=== PATIENT | male | born 1960 | race Caucasian/White ===

== ENCOUNTER 2023-01-25 21:01 | Inpatient (IN) | payer OTHER ==
[~2023-01-25] VITALS: Ht 162.6 cm; Wt 63.0 kg
[2023-01-25 21:15] VITALS: BP 95/73; PULSE 60; RESP 16; TEMP 98.2; O2SAT 97
[2023-01-25 21:55] VITALS: O2SAT 98
[2023-01-25] MEDS ORDERED: MORPHINE SULFATE 4 MG/ML SYR IVP ONE (22:15)
[2023-01-25] MEDS ORDERED: ONDANSETRON 4 MG/2 ML VIAL IVP ONE (22:15)
[2023-01-25 22:51] LABS: HEMATOCRIT 27.8 % (36-52); HEMOGLOBIN 9.5 g/dL (12.0-18.0); MEAN CORPUSCULAR HEMOGLOBIN 34 pg (27-31); MEAN CORPUSCULAR HGB CONC 34 g/dL (33-37); MEAN CORPUSCULAR VOLUME 99.4 fL (80-94); PLATELET COUNT (AUTO) 155 K/uL (140-450); RED CELL DISTRIBUTION WIDTH 15.2 % (11.6-13.7); WHITE BLOOD COUNT (AUTO) 5.8 K/uL (4.8-10.8)
[2023-01-25 23:08] LABS: ALBUMIN 2.4 g/dL (3.4-5.0); ANION GAP 13.4 (8-16); CALCIUM 7.9 mg/dL (8.5-10.1); CARBON DIOXIDE 28.7 mmol/L (21-32); INR 1.26 (0.8-1.2); PARTIAL THROMBOPLASTIN TIME 31.3 secs (22-35.6); POTASSIUM 4.1 mmol/L (3.5-5.1); PROTHROMBIN TIME 13.1 secs (10.8-13.4); TOTAL BILIRUBIN 0.5 mg/dL (0.0-1.0); TOTAL PROTEIN, SERUM 6.3 g/dL (6.4-8.2)
[2023-01-25 23:12] LABS: LACTIC ACID 0.5 mmol/L (0.4-2.0)
[2023-01-25 23:13] LABS: CREATININE 4.7 mg/dL (0.6-1.3)
[2023-01-25 23:23] LABS: BASOPHILS % (MANUAL) 0 % (0-2); EOSINOPHILS % (MANUAL) 9 % (0-4); LYMPHOCYTES % (MANUAL) 32 % (20-46); METAMYELOCYTES % 1 % (0-0); MONOCYTES % (MANUAL) 10 % (5-12)
[2023-01-25] MEDS ORDERED: PIPERACILLIN/TAZOBACTAM 2.25 GM in DEXTROSE 5% 50 ML IV ONE (23:25)
[2023-01-25] MEDS ORDERED: VANCOMYCIN 1,000 MG in DEXTROSE 5% 250 ML IV ONE (23:25)
[2023-01-25] MEDS ORDERED: VANCOMYCIN 1,000 MG VIAL ONE (23:48)
[2023-01-25] MEDS ORDERED: PIPERACILLIN/TAZOBACTAM 2.25 GM VIAL IV ONE (23:54)
[2023-01-26] VITALS (7 sets, daily range): BP systolic 143–217; BP diastolic 36–89; PULSE 66–78; RESP 18–20; TEMP 96.9–98.4; O2SAT 94–100
[2023-01-26] MEDS ORDERED: ONDANSETRON 4 MG/2 ML VIAL IVP PRN (00:40)
[2023-01-26] MEDS ORDERED: ACETAMINOPHEN 325 MG TAB PO PRN (00:40)
[2023-01-26] MEDS ORDERED: ZOLPIDEM 5 MG TAB PO PRN (00:40)
[2023-01-26] MEDS ORDERED: HYDROcodone/APAP 5/325 MG 1 TAB TAB PO PRN (00:40)
[2023-01-26] MEDS ORDERED: LORazepam 1 MG TAB PO PRN (00:40)
[2023-01-26] MEDS ORDERED: VANCOMYCIN 1,000 MG VIAL ONE (00:51)
[2023-01-26] MEDS ORDERED: APID SUBQ (02:47)
[2023-01-26] MEDS ORDERED: ATOR40TA PO (02:47)
[2023-01-26] MEDS ORDERED: NIFE90TE63 PO (02:47)
[2023-01-26] MEDS ORDERED: LOSA100T2 PO (02:47)
[2023-01-26] MEDS ORDERED: METO-485 PO (02:47)
[2023-01-26] MEDS ORDERED: CHLO25TA33 PO (02:47)
[2023-01-26] MEDS ORDERED: ACET-5636 PO (02:47)
[2023-01-26] MEDS ORDERED: HYDR100T49 PO (02:47)
[2023-01-26] MEDS ORDERED: MEMA5TAB PO (02:47)
[2023-01-26] MEDS ORDERED: ISOS20TA13 PO (02:47)
[2023-01-26] MEDS ORDERED: CARV25TA PO (02:47)
[2023-01-26] MEDS ORDERED: AMIT25TA40 PO (02:47)
[2023-01-26] MEDS: MORPHINE SULFATE 2 MG/ML SYR IVP PRN ×3 (05:55→20:28)
[2023-01-26] MEDS: DOCUSATE SODIUM 100 MG GELCAP PO SCH (09:00)
[2023-01-26] MEDS ORDERED: NON-FORMULARY ITEM (Hydralazine HCl (Hydralazine Hcl) 100 MG) PO SCH (10:35)
[2023-01-26] MEDS ORDERED: VANCOMYCIN PER PHARMACY MC PRN (10:55)
[2023-01-26] MEDS: NIFEdipine 90 MG TABER PO SCH (11:10)
[2023-01-26] MEDS: LOSARTAN 25 MG TAB PO SCH ×2 (11:10→20:22)
[2023-01-26] MEDS: carvediloL 12.5 MG TAB PO SCH (11:11)
[2023-01-26] MEDS: ISOSORBIDE MONONITRATE 30 MG TABER PO SCH (12:19)
[2023-01-26] MEDS: CEFEPIME 1,000 MG in DEXTROSE 5% 50 ML IV SCH (12:27)
[2023-01-26] MEDS: hydrALAZINE 25 MG TAB PO SCH ×3 (13:00→18:33)
[2023-01-26] MEDS ORDERED: DEXTROSE 50% 50 ML SYR IVP PRN (16:35)
[2023-01-26] MEDS: MEMANTINE 10 MG TAB PO SCH ×2 (17:00→18:34)
[2023-01-26] MEDS: BLOOD GLUCOSE MONITORING 1 DEV DEV FS SCH (20:48)
[2023-01-26] MEDS: INSULIN LISPRO SLIDING SCALE 100 UNITS/ML VIAL SUBQ PRN (20:52)
[2023-01-26] MEDS ORDERED: ATORVASTATIN 20 MG TAB PO SCH (21:00)
[2023-01-27] VITALS (7 sets, daily range): BP systolic 129–180; BP diastolic 45–68; PULSE 64–80; RESP 18–20; TEMP 97.9–98.9; O2SAT 95–99
[2023-01-27] MEDS: MORPHINE SULFATE 2 MG/ML SYR IVP PRN ×3 (05:44→15:50)
[2023-01-27 05:59] LABS: ALBUMIN 2.5 g/dL (3.4-5.0); ANION GAP 11.7 (8-16); CALCIUM 8.1 mg/dL (8.5-10.1); CARBON DIOXIDE 29.5 mmol/L (21-32); MAGNESIUM 1.9 mg/dL (1.8-2.4); PHOSPHORUS 3.9 mg/dL (2.5-4.9); POTASSIUM 4.2 mmol/L (3.5-5.1); TOTAL BILIRUBIN 0.5 mg/dL (0.0-1.0); TOTAL PROTEIN, SERUM 6.7 g/dL (6.4-8.2)
[2023-01-27 06:18] LABS: CREATININE 4.4 mg/dL (0.6-1.3)
[2023-01-27] MEDS: BLOOD GLUCOSE MONITORING 1 DEV DEV FS SCH ×3 (06:35→16:27)
[2023-01-27] MEDS: INSULIN LISPRO SLIDING SCALE 100 UNITS/ML VIAL SUBQ PRN ×2 (06:43→11:23)
[2023-01-27] MEDS: MEMANTINE 10 MG TAB PO SCH ×2 (08:59→17:52)
[2023-01-27] MEDS ORDERED: ISOSORBIDE MONONITRATE 30 MG TABER PO SCH (09:00)
[2023-01-27] MEDS: LOSARTAN 25 MG TAB PO SCH (09:00)
[2023-01-27] MEDS: NIFEdipine 90 MG TABER PO SCH (09:00)
[2023-01-27] MEDS ORDERED: NON-FORMULARY ITEM (Chlorthalidone 1 TAB) PO SCH (09:00)
[2023-01-27] MEDS: ISOSORBIDE MONONITRATE 30 MG TABER PO SCH (09:00)
[2023-01-27] MEDS ORDERED: ISOSORBIDE DINITRATE 20 MG TAB PO SCH (09:00)
[2023-01-27] MEDS: DOCUSATE SODIUM 100 MG GELCAP PO SCH (09:00)
[2023-01-27] MEDS: carvediloL 12.5 MG TAB PO SCH (09:00)
[2023-01-27] MEDS: hydrALAZINE 25 MG TAB PO SCH ×3 (09:00→17:52)
[2023-01-27] MEDS ORDERED: EPOETIN ALFA 10,000 UNITS/ML VIAL IV ONE (11:55)
[2023-01-27] MEDS ORDERED: CEFE1SOL IV (13:10)
[2023-01-27] MEDS: CEFEPIME 1,000 MG in DEXTROSE 5% 50 ML IV SCH (13:54)
[2023-01-29] MEDS ORDERED: EPOETIN ALFA 10,000 UNITS/ML VIAL IV SCH (09:00)
== END 2023-01-27 18:11 | disposition home or self-care (01) | DRG 194 ==
LOC: MED 21:01 → EDBD 21:01 → MTU 01-26 00:39
PROVIDERS: ADMIT Hospitalist; ATTEND Hospitalist
PROC: 5A1D70Z Performance of Urinary Filtration, Intermittent, Less than 6 Hours Per Day (ICD-10-PCS; principal; 2023-01-26)
PROC: 5A1D70Z Performance of Urinary Filtration, Intermittent, Less than 6 Hours Per Day (ICD-10-PCS; 2023-01-27)
DX: I13.2 Hypertensive heart and chronic kidney disease with heart failure and with stage 5 chronic kidney disease, or end stage renal disease (principal); J96.01 Acute respiratory failure with hypoxia; E44.0 Moderate protein-calorie malnutrition; L89.159 Pressure ulcer of sacral region, unspecified stage; E11.610 Type 2 diabetes mellitus with diabetic neuropathic arthropathy; D63.8 Anemia in other chronic diseases classified elsewhere; N18.6 End stage renal disease; M86.60 Other chronic osteomyelitis, unspecified site; I50.23 Acute on chronic systolic (congestive) heart failure; E78.5 Hyperlipidemia, unspecified; E11.21 Type 2 diabetes mellitus with diabetic nephropathy; G89.29 Other chronic pain; M54.9 Dorsalgia, unspecified; E11.69 Type 2 diabetes mellitus with other specified complication; E11.22 Type 2 diabetes mellitus with diabetic chronic kidney disease; Z79.891 Long term (current) use of opiate analgesic; Z79.899 Other long term (current) drug therapy; Z68.23 Body mass index [BMI] 23.0-23.9, adult
CPT/HCPCS: 36415; 71045; 80053; 80202; 82948; 83605; 83735; 83880; 84100; 84484; 85025; 85610; 85730; 87081; 96365; 96367; 96375; 99285; J0692; J0885; J1644; J1815; J2270; J2405; J2543; J3370; J7060; Q0092